=== PATIENT | male | born 1975 | race Caucasian/White ===

== ENCOUNTER 2020-03-20 18:24 | Observation (INO) | payer OTHER ==
[~2020-03-20] VITALS: Ht 170.2 cm; Wt 65.0 kg
[2020-03-20] MEDS ORDERED: IBUP200 PO (18:43)
[2020-03-20 18:59] LABS: BASOPHILS ABSOLUTE AUTO 0.04 K/mm3 (0.00-0.23); BASOPHILS PERCENT AUTO 1 % (0-2); EOSINOPHILS ABSOLUTE AUTO 0.08 K/mm3 (0.00-0.68); EOSINOPHILS PERCENT AUTO 2 % (0-6); Hematocrit 38.2 % (37.0-53.0); Hemoglobin 12.6 g/dL (13.5-17.5); IMMATURE GRAN ABSOLUTE AUTO 0.01 K/mm3 (0.00-0.10); IMMATURE GRAN PERCENT AUTO 0 % (0-1); LYMPHOCYTES ABSOLUTE AUTO 0.51 K/mm3 (0.84-5.20); LYMPHOCYTES PERCENT AUTO 12 % (21-46); MONOCYTES ABSOLUTE AUTO 0.45 K/mm3 (0.16-1.47); MONOCYTES PERCENT AUTO 11 % (4-13); Mean Corpuscular HGB 31.3 pg (26.0-34.0); Mean Corpuscular Volume 95 fL (80-100); Mean Platelet Volume 9.9 fL (9.1-12.4); NEUTROPHILS ABSOLUTE AUTO 3.07 K/mm3 (1.96-9.15); NEUTROPHILS PERCENT AUTO 74 % (41-73); Platelet Count 119 K/mm3 (150-400); RDW Coefficient Variation 13.5 % (11.7-14.2); RDW Standard Deviation 47.4 fL (35.1-46.3); Red Blood Cell Count 4.03 M/mm3 (4.30-5.90); White Blood Cell Count 4.16 K/mm3 (4.00-11.30)
[2020-03-20 19:10] LABS: Ethanol (Alcohol), Blood, Med <3 mg/dL
[2020-03-20 19:11] LABS: Alanine Aminotransfer (ALT/SGP 135 U/L (12-78); Albumin, Blood 3.8 g/dL (3.4-5.0); Albumin/Globulin Ratio 1.2 (0.8-1.8); Alk Phos 105 U/L (50-136); Anion Gap 5 mmol/L (6-16); Aspartate Aminotrans (AST/SGOT 144 U/L (12-37); Bilirubin, Total 0.4 mg/dL (0.1-1.0); Blood Urea Nitrogen 16 mg/dL (8-24); Bun/Creatinine Ratio 17.6 (12.0-20.0); CO2, Blood 29 mmol/L (21-32); Calcium, Blood 9.1 mg/dL (8.5-10.1); Chloride, Blood 98 mmol/L (98-108); Creatinine, Blood 0.91 mg/dL (0.60-1.20); Globulin, Blood 3.2 g/dL (2.2-4.0); Glomerular Filtration Rate >60 (60-); Glucose, Blood 104 mg/dL (70-99); Potassium, Blood 3.6 mmol/L (3.5-5.5); Sodium, Blood 132 mmol/L (136-145)
[2020-03-20 22:53] LABS: Source, Urine Clean Catch
[2020-03-20 22:55] LABS: Bilirubin, Urine Neg (Neg); Blood, Urine Neg (Neg); Glucose Qualitative, Urine Neg (Neg); Ketones, Urine Neg (Neg); Leukocyte Esterase, Urine Neg (Neg); Nitrite, Urine Neg (Neg); Protein, Urine Neg (Neg); Urobilinogen, Urine NORM (Normal)
[2020-03-20 23:01] LABS: Appearance, Urine Clear (Clear); Color, Urine Yellow (P-Yellow)
[2020-03-20] MEDS ORDERED: ALPR.5 PO (23:56)
[2020-03-20] MEDS ORDERED: ONE DAILY MUL400 MCG PO (23:58)
[2020-03-20] MEDS ORDERED: B-1100 M1 PO (23:59)
[2020-03-21 05:04] LABS: Hematocrit 36.8 % (37.0-53.0); Hemoglobin 12.4 g/dL (13.5-17.5); Mean Corpuscular HGB Conc 33.7 g/dL (31.5-36.5); Mean Corpuscular Volume 95 fL (80-100); Mean Platelet Volume 10.2 fL (9.1-12.4); Platelet Count 96 K/mm3 (150-400); RDW Coefficient Variation 13.5 % (11.7-14.2); RDW Standard Deviation 47.3 fL (35.1-46.3); Red Blood Cell Count 3.88 M/mm3 (4.30-5.90); White Blood Cell Count 4.81 K/mm3 (4.00-11.30)
[2020-03-21 05:31] LABS: Alanine Aminotransfer (ALT/SGP 110 U/L (12-78); Albumin, Blood 3.1 g/dL (3.4-5.0); Alk Phos 97 U/L (50-136); Anion Gap 9 mmol/L (6-16); Aspartate Aminotrans (AST/SGOT 102 U/L (12-37); Bilirubin, Total 0.6 mg/dL (0.1-1.0); Blood Urea Nitrogen 11 mg/dL (8-24); CO2, Blood 24 mmol/L (21-32); CPK Creatine Kinase 152 U/L (39-308); Calcium, Blood 8.3 mg/dL (8.5-10.1); Chloride, Blood 105 mmol/L (98-108); Creatinine, Blood 0.92 mg/dL (0.60-1.20); Globulin, Blood 3.1 g/dL (2.2-4.0); Glomerular Filtration Rate >60 (60-); Glucose, Blood 82 mg/dL (70-99); Magnesium, Blood 2.1 mg/dL (1.6-2.4); Potassium, Blood 3.3 mmol/L (3.5-5.5); Sodium, Blood 138 mmol/L (136-145); Total Protein, Blood 6.2 g/dL (6.4-8.2)
--- NOTE | 2020-03-21 05:40 | NUR ---
SHIFT SUMMARY PATIENT ARRIVED TO ROOM 341 VIA STRETCHER AT 0100. HE IS ALERT AND ORIENTED, STEADY ON HIS FEET AND ABLE TO SAFELY AMBULATE AND SELF TRANFER BETWEEN SURFACES IN HIS ROOM. SEIZURE PRECAUTIONS IN PLACE. HOWEVER, THE PATIENT HAS SHOWN NO SIGN OF SEIZURE ACTIVITY. HE ALSO SHOWS NO SIGN OF ALCOHOL WITHDRAWL. HE DOES REPORT HAVING A HEADACHE, BUT IT IS RELATED TO HITTING HIS HEAD DURING HIS PREHOSPITAL SEIZURE. FACE HAS MANY ABRASIONS AND IS RED. IV PATENT AND INFUSING. BED IN LOWEST POSITION WITH WHEELS LOCKED. SEIZURE PADS ON BED SIDERAILS. CALL LIGHT WITHIN REACH. REPORT GIVEN TO ONCOMING RN.
[2020-03-21] MEDS ORDERED: MAGNESIUM OXID500 MG PO (13:51)
[2020-03-21] MEDS ORDERED: KLOR-CON 1010 ME1 PO (13:51)
--- NOTE | 2020-03-21 14:17 | NUR ---
Discharge Summary A/Ox4, pleasant and cooperative. Up independently in room. Make needs known. Discharging to home. Patient is from [facility] and will be staying with friends once discharged. Patient is to follow up with Urgent Care if he will still be here in the next two weeks. Meds faxed to [facility]. Escorted by Discharge Volunteer via w/c. Personal belongings sent with patient.
== END 2020-03-21 14:28 | disposition home or self-care (01) ==
LOC: ER 18:24 → MEDS 18:25 → EDPENDDIS 03-21 13:25 → ENPENDDIS 03-21 13:25 → MEDS 03-21 14:28
PROVIDERS: Emergency Medicine; ADMIT Internal Medicine
DX: F10.239 Alcohol dependence with withdrawal, unspecified (principal); G40.89 Other seizures; F17.210 Nicotine dependence, cigarettes, uncomplicated; E87.1 Hypo-osmolality and hyponatremia; Z88.0 Allergy status to penicillin; Z91.038 Other insect allergy status; Y90.0 Blood alcohol level of less than 20 mg/100 ml
CPT/HCPCS: 36415; 70450; 80053; 81003; 82550; 83735; 84100; 85025; 85027; 93005; 93010; 96374; 99285-25; A9270; G0378; G0480; J2060; J3480; J7030